=== PATIENT | female | born 1985 | race Hispanic/Latino ===

== ENCOUNTER 2021-10-19 20:20 | Emergency (ER) | payer OTHER ==
[~2021-10-19] VITALS: Ht 162.6 cm; Wt 52.2 kg
[~2021-10-19 20:20] MED LIST: PREN-147 PO
[2021-10-19] MEDS ORDERED: ACETAMINOPHEN 500 MG TABLET PO ONE (21:30)
[2021-10-19 22:10] VITALS: BP 135/71
[2021-10-19] MEDS ORDERED: AMOX1TAB16 PO (22:29)
[2021-10-19] MEDS ORDERED: NAPR500T6 PO (22:29)
[2021-10-19] MEDS ORDERED: CYCL5TAB PO (22:29)
[2021-10-19] MEDS ORDERED: CYCLOBENZAPRINE HCL 10 MG TABLET PO ONE (22:30)
[2021-10-19] MEDS ORDERED: AMOX/CLAV 875/125MG TAB PO ONE (22:30)
[2021-10-19] MEDS ORDERED: CYCLOBENZAPRINE HCL 10 MG TABLET ONE (22:44)
[2021-10-19] MEDS ORDERED: AMOX/CLAV 500/125MG TAB PO ONE (22:44)
== END 2021-10-19 22:52 | disposition home or self-care (01) ==
LOC: EDH 20:20
DX: H70.001 Acute mastoiditis without complications, right ear (principal); R51.9 Headache, unspecified; M54.2 Cervicalgia; M54.50 Low back pain, unspecified; Z79.1 Long term (current) use of non-steroidal anti-inflammatories (NSAID); Z98.51 Tubal ligation status; V49.49XA Driver injured in collision with other motor vehicles in traffic accident, initial encounter; Y93.89 Activity, other specified; Y92.89 Other specified places as the place of occurrence of the external cause; Y99.8 Other external cause status
CPT/HCPCS: 70450; 72125; 72131; 81025

== ENCOUNTER 2022-08-17 12:00 | Emergency (ER) | payer MEDICAID, OTHER ==
[~2022-08-17] VITALS: Ht 162.6 cm; Wt 57.6 kg
[~2022-08-17 12:00] MED LIST changes: +AMOX1TAB16 PO; +CYCL5TAB PO; +NAPR500T6 PO
[2022-08-17 12:35] LABS: APPEARANCE,URINE CLOUDY (CLEAR); BILIRUBIN,URINE NEGATIVE (NEGATIVE); COLOR,URINE LIGHT-YELLOW (YELLOW); GLUCOSE, URINE (UA) NEGATIVE (NEGATIVE); KETONES,URINE 20 mg/dL (NEGATIVE); LEUKOCYTE ESTERASE ,URINE 500 Leu/uL (NEGATIVE); NITRATE,URINE NEGATIVE (NEGATIVE); OCCULT BLOOD,URINE MODERATE (NEGATIVE); PH,URINE 5.5 (5.0-8.0); PROTEIN,URINE 10 mg/dL (NEGATIVE); UROBILINOGEN,URINE 0.2 mg/dL (0.2-1.0)
[2022-08-17 12:37] LABS: HCG,QUALITATIVE URINE NEGATIVE (NEGATIVE)
[2022-08-17 12:41] LABS: MUCUS,URINE RARE LPF (None Seen); SQUAMOUS EPITHELIAL CELL,UR FEW /HPF (0-2); WBC,URINE TNTC /HPF (0-1)
[2022-08-17] MEDS ORDERED: CEFTRIAXONE 1G VIAL IVPB ONE (13:00)
[2022-08-17] MEDS ORDERED: 0.9%NACL 1000ML 1,000 ML IV ONE (13:00)
[2022-08-17] MEDS ORDERED: AMOX875T2 PO (13:12)
[2022-08-17 13:41] VITALS: BP 121/65
== END 2022-08-17 13:51 | disposition home or self-care (01) ==
LOC: EDH 12:00
DX: N39.0 Urinary tract infection, site not specified (principal); J02.0 Streptococcal pharyngitis; Z98.51 Tubal ligation status; Z20.822 Contact with and (suspected) exposure to COVID-19
CPT/HCPCS: 99284; 96365; 87635; 87880; 87804 ×2; 81001; 81025; C9803; J0696

== ENCOUNTER 2023-12-30 17:00 | Emergency (ER) | payer MEDICAID ==
[~2023-12-30] VITALS: Ht 162.6 cm; Wt 60.3 kg
[~2023-12-30 17:00] MED LIST changes: +AMOX875T2 PO; -CYCL5TAB PO; +CYCL5TAB3 PO; +NAPR-1506 PO; -NAPR500T6 PO
[2023-12-30 17:04] VITALS: BP 124/70; PULSE 119; RESP 20; TEMP 102
[2023-12-30 17:39] LABS: SARS-CoV-2, RNA, NAAT NEGATIVE SARS CoV-2 (NEGATIVE)
[2023-12-30 17:41] LABS: RAPID GROUP A STREP positive (NEGATIVE)
[2023-12-30 17:47] LABS: INFLUENZA TYPE A Negative For Type A (NEGATIVE); INFLUENZA TYPE B Negative For Type B (NEGATIVE)
[2023-12-30 18:04] LABS: APPEARANCE,URINE CLEAR (CLEAR); BILIRUBIN,URINE NEGATIVE (NEGATIVE); COLOR,URINE YELLOW (YELLOW); GLUCOSE, URINE (UA) NEGATIVE (NEGATIVE); KETONES,URINE NEGATIVE (NEGATIVE); LEUKOCYTE ESTERASE ,URINE 75 Leu/uL (NEGATIVE); NITRATE,URINE NEGATIVE (NEGATIVE); OCCULT BLOOD,URINE LARGE (NEGATIVE); PH,URINE 8.5 (5.0-8.0); PROTEIN,URINE 30 mg/dL (NEGATIVE); UROBILINOGEN,URINE 3 mg/dL (0.2-1.0)
--- NOTE | 2023-12-30 18:06 | ERN ---
ED Note History of Present Illness Stated Complaint: FEVER,BODY ACHE,CHILLS,TIGHTNESS IN CHEST Chief Complaint: Fever Time Seen by MD: 17:20 Time Seen by Midlevel: 17:20 Dictation: 38-year-old female presents to the emergency department due to reported having a headache, chills, body aches and a sore throat along with nonproductive cough that began earlier today. She denies having had contact with anybody with similar symptoms. Upon initial evaluation, the patient presents in no acute respiratory distress. Allergies: Coded Allergies: No Known Drug Allergies (Verified Allergy, 04/09/13) Uncoded Allergies: NKD (Allergy, 01/28/12) Home Meds Active Scripts Amoxicillin (Amoxicillin) 875 Mg Tablet, 875 MG PO BID for 7 Days, #14 TAB Prov:KAREN DURANT NP 08/17/22 Naproxen (Naproxen) 500 Mg Tablet.dr, 500 MG PO BIDPC, #15 TAB Prov:FITTINGMAGALI 10/19/21 Cyclobenzaprine HCl (Cyclobenzaprine HCl) 5 Mg Tablet, 5 MG PO TID, #15 TAB Prov:FITTINGMAGALI 10/19/21 Amoxicillin/Potassium Clav (Amox Tr-K Clv 875-125 mg Tab) 1 Each Tablet, 1 EACH PO BID, #14 TAB Prov:MAGALI NOVOA 10/19/21 Reported Medications Vits #90/Iron Fum/FA ( Formula Tablet) 1 Each Tablet, 1 EACH PO DAILY, TAB 07/29/14 Past Medical History Past Medical History: No Pertinent History Surgical History: Other, BTL Surgical History Other: TUBAL LIGATION LMP: Dec 27, 2023 RN Note Reviewed/Agreed w/PFSH: Yes Review of System Dictation Constitutional: Chills, body aches ENT: Sore throat Respiratory: Nonproductive cough Initial Vital Sign VS Vital Signs Date Time Temp Pulse Resp B/P (MAP) Pulse Ox O2 Delivery O2 Flow Rate FiO2 12/30/23 17:04 102.0 119 20 124/70 100 Room Air 0 Physical Exam Dictation General: awake, alert, NAD Head/Face: Normocephalic, atraumatic Eyes: PERRL, EOMI ENT: Oral mucosa moist, erythematous pharynx. Neck: Trachea midline, supple Cardiovascular: RRR, no edema Respiratory: Symmetrical, non-labored Abdomen: Soft, non-tender, non-distended, no guarding. Skin: Warm, dry, good turgor, no rash MS/Extremity: Pulses equal, no cyanosis, neurovascular intact, FROM Neuro: COAx4, GCS 15, steady gait, Psych: Normal behavior, mood, and affect normal Results (Laboratory/Radiology) Laboratory/Radiology Laboratory Tests Test 12/30/23 17:12 12/30/23 17:21 Influenza Type A Antigen Negative For Type A Influenza Type B Antigen Negative For Type B SARS-CoV-2, RNA, NAAT NEGATIVE SARS CoV-2 Group A Streptococcus Rapid positive (NEGATIVE) *A Urine Color YELLOW (YELLOW) Urine Appearance CLEAR (CLEAR) Urine pH 8.5 (5.0-8.0) H Urine Specific [place] 1.023 (1.001-1.031) Urine Protein 30 mg/dL (NEGATIVE) H Urine Glucose (UA) NEGATIVE mg/dL (NEGATIVE) Urine Ketones NEGATIVE mg/dL (NEGATIVE) Urine Occult Blood LARGE (NEGATIVE) H Urine Nitrate NEGATIVE (NEGATIVE) Urine Bilirubin NEGATIVE mg/dL (NEGATIVE) Urine Urobilinogen 3 mg/dL (0.2-1.0) H Urine Leukocyte Esterase 75 Ree/uL (NEGATIVE) H Urine RBC 11-25 /HPF (0-1) H Urine WBC 11-25 /HPF (0-1) H Urine Squamous Epithelial Cells FEW /HPF (0-2) Urine Bacteria RARE /HPF (None Seen) Urine HCG, Qualitative NEGATIVE (NEGATIVE) Labs Reviewed?: Yes ED Course ED Course Orders Procedure Category Date Status Time Covid Rna Naat LAB 12/30/23 Complete 17:09 Rapid (Group A Strep) LAB 12/30/23 Complete 17:09 Influenza Type A & B, LAB 12/30/23 Complete Rapid 17:09 Urinalysis Profile LAB 12/30/23 Complete 17:09 ,Urine Test LAB 12/30/23 Complete 17:09 Ceftriaxone 1g Vial PHA 12/30/23 Complete (Rocephine 1g Inj) 18:30 Acetaminophen 500mg PHA 12/30/23 Complete Tab (Tylenol 500mg T 18:30 Culture Urine MIL 12/30/23 In Process 18:10 Current Medications Medications (Trade) Dose Ordered Sig/Sulema Route PRN Reason Start Time Stop Time Status Last Admin Dose Admin Acetaminophen (TYLenol 500MG TAB) 1,000 mg ONCE ONCE PO 12/30/23 18:30 12/30/23 18:31 DC Ceftriaxone Sodium (ROCEphine 1G INJ) 1 gm ONCE ONCE IM 12/30/23 18:30 12/30/23 18:31 DC Vital Signs Date Time Temp Pulse Resp B/P (MAP) Pulse Ox O2 Delivery O2 Flow Rate FiO2 12/30/23 17:04 102.0 119 20 124/70 100 Room Air 0 Medical Decision Making MDM MDM: Differential diagnosis: Acute streptococcal pharyngitis, viral pharyngitis, viral illness. Rationale: Tests considered and ordered secondary to shared decision making include: Previous outside records reviewed: Old ER visits. Risk of complication and/or morbidity or mortality of patient management: None Medications-Per medication reconciliation Need for hospitalization: Patient does not meet criteria for hospitalization. Need for emergency major/minor surgery: No There are no social concerns with this patient. Prescription drug management Prescriptions will include symptomatic care Patient's prior external medical records from other ER visits were reviewed by me as indicated. Prior testing and results from previous visits were reviewed. Prior tests were taken into account with medical decision making and resource utilization, independent historian/historians were used to obtain complete medical history. I independently interpreted the test that were performed, results were reviewed by me and considered findings on radiology if ordered. Medical management and examination interpretation discussions were had by me with other qualified healthcare professionals as indicated for the patient's care. DX & DISP Disposition: Discharge Departure Impression: Primary Impression: Acute streptococcal pharyngitis Condition: Stable Scripts Amoxicillin/Potassium Clav (Amox Tr-K Clv 875-125 mg Tab) 875 Mg-125 Mg Tablet 1 EACH PO BID for 10 Days, #20 TAB 0 Refills Prov: PIERRE CHRISTIE 12/30/23 Referrals: SELF,REFERRAL (PCP) I have reviewed the case, and I agree with, Diagnosis and Plan PIERRE CHRISTIE Dec 30, 2023 18:06
[2023-12-30 18:09] LABS: ADD UA MICROSCOPIC YES; HCG,QUALITATIVE URINE NEGATIVE (NEGATIVE)
[2023-12-30 18:11] LABS: BACTERIA,URINE RARE /HPF (None Seen); MUCUS,URINE RARE LPF (None Seen); SQUAMOUS EPITHELIAL CELL,UR FEW /HPF (0-2)
[2023-12-30] MEDS ORDERED: AMOX1TAB16 PO (19:00)
[2023-12-30] MEDS: cefTRIAXone 1G VIAL IM ONE (19:21)
[2023-12-30 19:22] VITALS: TEMP 100
[2023-12-30] MEDS: acetaMINOPHEN 500 MG TABLET PO ONE (19:22)
== END 2023-12-30 19:26 | disposition home or self-care (01) ==
LOC: EEVIPCON 17:00 → EDH 17:00
DX: J02.0 Streptococcal pharyngitis (principal); Z20.822 Contact with and (suspected) exposure to COVID-19; Z98.51 Tubal ligation status; Z79.899 Other long term (current) drug therapy; Z98.890 Other specified postprocedural states
CPT/HCPCS: 99283; 87635; 87086 ×2; 87186; 87880; 87804 ×2; 81001; 81025; 96372; J0696